=== PATIENT | male | born 1930 | race Caucasian/White ===

== ENCOUNTER → 2016-10-12 | Emergency (ER) | payer MEDICARE, OTHER ==
[~2016-10-12] VITALS: Ht 185.4 cm; Wt 109.0 kg
[~2016-10-12] MED LIST: AC500T PO; ALBU8.5H6 INH; ALBU8CC IH; AMOX-358 PO; ASCO500T6 PO; ASCO500T7 PO; ASP81TEC PO; ASPI-860 PO; BISA10SU6 PR; BISA10SU6 RC; BUDE10.2 IH; BUDE10.2 INH; CALC-676 PO; CALC650T14 PO; CARB1DRO7 OU; CARV3.12T PO; CETI-262 PO; CLOB15OI2 TOP; CLOT15CR5 TOP; CRAN1TAB5 PO; CRAN500C4 PO; CRV6.25T PO; FERR-74 PO; FLUT16SP NSEACH; FURO-125 PO; FURO40TA4 PO; GABA100C PO; GBPN100C PO; GUAI400T58 PO; HYDR-3881 PO; IPR14IN INH; IPR14UD INH; IPRA0.2S50 IH; KCL10CCR PO; LEVO500T80 PO; LEVO750T9 PO; LSNP10T PO; MULT1TAB20 PO; MULT1TAB63 PO; OMEP20CA12 PO; OXYB5TAB9 PO; PETR113O TOP; POLY119P5 PO; POLY17PO2 PO; POLY250017 MC; POT473SP TP; POTA10CA43 PO; POTA20LI2 PO; PSYL1POW PO; PSYL660P17 PO; SERT50TA2 PO; SERT50TA9 PO; SILV20CR14 TOP; SIMV40TA2 PO; SMV10T PO; SMV20T PO; SPRN25T PO; SULF-228 PO; TRIA15CR TP; UREA CREAM TOP; UREA113. TOP; [UNRECOGNIZED DRUG - CODE] PO; [UNRECOGNIZED DRUG - CODE] PO; [UNRECOGNIZED DRUG - CODE] PO; [UNRECOGNIZED DRUG - CODE] TOP; [UNRECOGNIZED DRUG - CODE] TOP; [UNRECOGNIZED DRUG - CODE] TOP; [UNRECOGNIZED DRUG - CODE] TP; [UNRECOGNIZED DRUG - SUPPLY] TP
[2016-10-12 08:39] VITALS: BP 107/72
--- OUTSIDE RECORDS SUMMARY | 2016-10-12 08:39 | XMS REPORT | Continuity of Care Document ---
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 Name Role Phone DENISSE MOSS SQUEEGEE FINISHER PCP [phone] Insurance Providers Payer Name Policy Number Subscriber Name Relationship Medicare A And B [id number] Sherri Jimenez 23 Unknown Other1 [id number] Sherri Jimenez 20 Self / Same As Patient Advance Directives Directive Response Recorded Date/Time Advanced Directives Not applicable 04/06/16 1:32pm Type Durable Power of Supervisor [place] 04/02/16 6:32pm Type Living Will 04/02/16 6:32pm Chief Complaint and Reason for Visit Chief Complaint Laceration Reason for Visit Laceration Problems Active Problems Medical Problem Onset Date Status KIMMY (acute kidney injury) Unknown Acute Acute retention of urine 05/30/2012 Resolved Altered mental status ~11/06/2013 Acute Community acquired pneumonia Unknown Acute Debility Unknown Acute Hypotension Unknown Acute Injury of toe, left, superficial, infected Unknown Acute Laceration Unknown Acute Pneumonia Unknown Acute Weakness Unknown Acute Medications Current Home Medications Medication Dose Units Route Directions Days/Qty Instructions Start Date Albuterol Sulfate 90 Mcg/1 Puff 2 Puff RESPIRATORY (INHALATION) Four Times Daily as needed for Shortness Of Breath 09/28/15 Ascorbic Acid 500 Mg 500 Mg ORAL Three Times A Day 09/28/15 Aspirin 81 Mg 81 Mg ORAL Daily 09/28/15 Bisacodyl 10 Mg 10 Mg RECTAL Daily@1800 09/28/15 Budesonide/Formoterol Fumarate 10.2 Gm 2 Puff RESPIRATORY (INHALATION) Twice A Day 09/28/15 Calcium Carbonate/Vitamin D3 1 Each 2 Tab ORAL Daily 09/28/15 Cetirizine Hcl 10 Mg 5 Mg ORAL Daily 09/28/15 Clobetasol Propionate 15 Gm 1 Applic TOPICAL Twice A Day as needed for Rash 09/28/15 Clotrimazole 15 Gm 1 Applic TOPICAL Twice A Day as needed for Rash 09/28/15 Ferrous Sulfate 325 Mg 325 Mg ORAL Daily 09/28/15 Omeprazole 20 Mg 20 Mg ORAL Daily@0700 09/28/15 Potassium Chloride 10 Meq 10 Meq ORAL Twice A Day With Meals Tolnaftate (Tolnaftate 1% Powder) 45 Gm 1 Applic TOPICAL Twice A Day 09/28/15 Urea 180 Ml 1 Applic TOPICAL Three Times A Day as needed for Calluses 09/28/15 Gabapentin (Neurontin) 100 Mg 200 Mg ORAL Bedtime 09/28/15 Multivits,Ca,Minerals/Iron/Fa (Multivitamin W/Minerals) 1 Each 1 Tab ORAL Daily 09/28/15 Oxybutynin Chloride 5 Mg 5 Mg ORAL Twice A Day 09/28/15 Sertraline Hcl 50 Mg 75 Mg ORAL Daily 09/28/15 Ipratropium [place] 17 Mcg/Puff 2 Puff RESPIRATORY (INHALATION) Twice A Day 04/02/16 Polyethylene Glycol 3350 17 Gm 34 Gm ORAL Daily as needed for Constipation 04/02/16 Psyllium Husk 660 Gm 2 Tsp ORAL Twice A Day 04/02/16 Simvastatin (Zocor) 10 Mg 10 Mg ORAL Bedtime 04/02/16 Fluticasone Propionate 16 Gm 2 Sprays Each Nostril Daily 04/02/16 Ipratropium [place] 17 Mcg/Puff 2 Puff RESPIRATORY (INHALATION) Every 2 Hours as needed for Breathing 04/02/16 Urea 113.4 Gm 1 Applic TOPICAL Daily 04/02/16 Acetaminophen (Tylenol) 500 Mg 500 Mg ORAL Every 6 Hours as needed for Pain 04/02/16 Cranberry/Vit C/L. Sporogenes 1 Each 2 Tab ORAL Daily 04/02/16 Levofloxacin 750 Mg 750 Mg ORAL As Directed 2 Take 1 tab every other day. First tab on 04/07 at 8AM; Second tab on 04/09 @ 8AM. 04/06/16 Past Home Medications Medication Directions Ordered Status Albuterol Sulfate 8 Gm Hfa.aer.ad, 2 Puff Respiratory (Inhalation) Four Times Daily 05/29/12 Discontinued [Akie [place] Protective Top Oint] , Topical Twice A Day 05/29/12 Discontinued Ascorbic Acid 500 Mg Tablet, 500 Mg Oral Three Times A Day 05/29/12 Discontinued Aspirin (Aspirin Ec) 81 Mg Tablet.dr, 81 Mg Oral Daily 05/29/12 Discontinued Bisacodyl 10 Mg Supp.rect, 10 Mg Rectal Daily 05/29/12 Discontinued Budesonide/Formoterol Fumarate 10.2 Gm Hfa.aer.ad, 2 Puff Respiratory ( Inhalation) Twice A Day 05/29/12 Discontinued Calcium Carbonate/Vitamin D3 1 Each Tablet, 2 Tab Oral Daily 05/29/12 Discontinued Calcium Carbonate 650 Mg Tablet, 1 Tab Oral Daily 05/29/12 Discontinued Aloe Vera/Na Lauryl So4 473 Ml [place].pump, 2 [place] Topical Daily 05/29/12 Discontinued Carvedilol (Coreg) 6.25 Mg Tablet, 3.125 Mg Oral Twice A Day 05/29/12 Discontinued Ergocalciferol (Vitamin D2) 50,000 Unit Capsule, 1 Tab Oral Weekly 05/29/12 Discontinued Ferrous Sulfate 325 Mg Tablet, 325 Mg Oral Daily 05/29/12 Discontinued Furosemide 40 Mg Tablet, 40 Mg Oral Twice A Day 05/29/12 Discontinued Gabapentin (Neurontin) 100 Mg Capsule, 100 Mg Oral Daily 05/29/12 Discontinued Ipratropium [place] 12.9 Gm Aers, 2 Puff Respiratory (Inhalation) Every 2 Hours While Awake 05/29/12 Discontinued Multivits W-Fe,Other Min 1 Each Tablet, 1 Tab Oral Daily 05/29/12 Discontinued Omeprazole 20 Mg Capsule.dr, 20 Mg Oral Daily 05/29/12 Discontinued Oxybutynin Chloride 5 Mg Tablet, 5 Mg Oral Twice A Day 05/29/12 Discontinued Polyethylene Glycol 3350 119 Gm Powder, 2 Cap Oral As Needed 05/29/12 Discontinued Potassium Chloride 10 Meq Capcr, 10 Meq Oral Three Times A Day 05/29/12 Discontinued Psyllium 1 Cap Capsule, 1 Tbs Oral Daily 05/29/12 Discontinued Protein Supplement 227 Gm Powder, 1 Tbs Oral Three Times A Day 05/29/12 Discontinued Trimethoprim/Sulfamethoxazole 1 Ea Tablet, 1 Ea Oral Twice A Day 05/29/12 Discontinued Sertraline Hcl 50 Mg Tablet, 75 Mg Oral Daily 05/29/12 Discontinued Silver Sulfadiazine 20 Gm Cream..g., Topical As Needed 05/29/12 Discontinued Simvastatin (Zocor) 40 Mg Tablet, 20 Mg Oral Daily 05/29/12 Discontinued Spironolactone (Aldactone) 25 Mg Tablet, 25 Mg Oral Daily 05/29/12 Discontinued Triamcinolone Acetonide 15 Gm Cream..g., Topical Twice A Day 05/29/12 Discontinued [Urea Cream] , Topical Daily 05/29/12 Discontinued Cranberry Extract 500 Mg Capsule, 500 Mg Oral Daily 11/06/13 Discontinued Hydrocodone Bit/Acetaminophen 1 Ea Tablet, 1 Ea Oral Every 6 Hours as needed for Pain 11/06/13 Discontinued Guaifenesin 400 Mg Tablet, 400 Mg Oral Every 8HRS as needed for Prn 11/06/13 Discontinued Gabapentin 100 Mg Capsule, 200 Mg Oral Bedtime 11/06/13 Discontinued Carvedilol (Coreg) 3.125 Mg Tablet, 0.5 Tab Oral Twice A Day 09/28/15 Discontinued Furosemide 40 Mg Tablet, 40 Mg Oral Bid@0900,1700 09/28/15 Discontinued Ipratropium [place] 0.2 Mg/1 Ml Solution, 2 Puff Respiratory (Inhalation) Twice A Day 09/28/15 Discontinued Levofloxacin 500 Mg Tablet, 500 Mg Oral Daily 09/28/15 Discontinued Lisinopril (Zestril) 10 Mg Tablet, 5 Mg Oral Daily 09/28/15 Discontinued Polyethylene Glycol 3350 2,500 Gm Powder, Unknown Dose Miscell Daily as needed for Constipation 09/28/15 Discontinued Psyllium Husk 1 Gm Powder, 1 Tsp Oral Twice A Day 09/28/15 Discontinued Spironolactone (Aldactone) 25 Mg Tablet, 25 Mg Oral Daily 09/28/15 Discontinued Amoxicillin/Clavulanate Potassium 1 Each Tablet, 1 Each Oral Twice A Day Discontinued Hydrophilic Cream 60 Gm Cream..g., Unknown Dose Topical As Needed as needed for Dry Skin 09/28/15 Discontinued Guaifenesin 400 Mg Tablet, 400 Mg Oral Three Times A Day 09/28/15 Discontinued Simvastatin (Zocor) 20 Mg Tablet, 0.5 Tab Oral Bedtime 09/28/15 Discontinued Pot Sorbate/Vit E/Navi [place]/Urea 473 Ml [place], Unknown Dose Topical Three Times A Day 09/28/15 Discontinued Social History Social History Problem Response Recorded Date/Time Onset Date Status Exposure to occupational hazards No 04/02/2016 6:32pm Query Response Start Date Stop Date Smoking Status Former smoker Hospital Discharge Instructions No hospital discharge instructions. Plan of Care Discharge Date 04/06/16 2:19pm Disposition 01 HOME OR SELF-CARE Condition at Discharge Stable Instructions/Education Provided Laceration (ED) Prescriptions See Medication Section Referrals DENISSE MOSS APRN - Additional Instructions/Education Some of your test results may not be complete prior to your leaving the Emergency Department. The Emergency Department is not authorized to give test results over the phone. Please contact the doctor's office listed in this packet of information for your final results. Follow up with your primary care physician or return to the Emergency Department for worsening or worrisome symptoms. * Emergency Department phone number: [phone], x [phone]* MEDICAL RECORD If you need copies of your X-rays, call [phone]. If you need copies of your medical record, including lab results, a signed authorization for release of records will be required. A telephone call for release of Health Information is not allowed. BILLING Billing can sometimes be confusing and frustrating. To help avoid confusion in the future, please take a moment to acquaint yourself with the billing parties for services. SERVICE BILLING LIBERTARIAN Emergency Room Services [facility] Physician Services [facility] X-rays [place] [facility] Patients will receive bills for services from the appropriate provider. If you have any questions about your [facility] bill, our staff will be happy to assist you. Please call [phone], and ask for the billing department. THANK YOU for choosing [facility] as your emergency care provider! Care Plan and Goals ~~Discharge Care Plan~~ Problem: Laceration repaired Goal: Wound is closed with edges lined up, and will heal without redness, drainage or signs of infection. Instructions: Keep wound clean and dry. Apply antibiotic ointment as directed. Follow physician discharge instructions. Keep wound covered if working in an unclean environment. Wear gloves if working with food in a work environment. Functional Status No functional status results. Allergies, Adverse Reactions, Alerts Allergen Type Severity Reaction Status Last Updated Codeine Allergy Unknown Active 04/02/16 Warfarin Allergy Unknown Active 04/02/16 Clindamycin Allergy Unknown Active 04/02/16 Sulfamethizole Allergy Unknown Active 04/02/16 Cefpodoxime Allergy Unknown Active 04/02/16 Immunizations Name Given Type Status Date Influenza Vaccine Received if Current 04/13/13 Historical Historical Vital Signs Acute Vital Signs Vital Response Date/Time Temperature (Fahrenheit) 98.0 04/06/2016 2:13pm Pulse 72 bpm 04/06/2016 2:13pm Respirations 18 04/06/2016 2:13pm Height 6 ft 1 in Weight 261 lb Body Mass Index 34.0 kg/m^2 Results Laboratory Results Test Name Result Units Flags Reference Collection Date/Time Result Date/ Time Comments White Blood Count 7.43 10^3uL 4.0-11.0 2016 5:20am 2016 6: 54am Red Blood Count 3.67 10^6uL L 4.50-5.50 2016 5:2004/05/2016 6: 54am Hemoglobin 11.4 g/dL L 13.5-17.0 2016 5:2004/05/2016 6:54am Hematocrit 34.20 % L 39.00-50.00 2016 5:20am 2016 6:54am Mean Corpuscular Volume 93 FL 80-100 2016 5:2004/05/2016 6: 54am Mean Corpuscular Hemoglobin 31.1 PG 26.0-34.0 2016 5:202015 6:54am Mean Corpuscular Hemoglobin Concent 33.3 g/dL 31.0-37.0 2016 5: 2016 6:54am Red Cell Distribution Width 14.3 % 11.8-15.6 2016 5:2015 6:54am Platelet Count 235 10^3uL 150-450 2016 5:2016 6:54am Mean Platelet Volume 10.6 FL H 6.0-9.5 2016 5:2016 6: 54am Neutrophils (%) (Auto) 70 % H 51-67 2016 5:2016 6:54am Lymphocytes (%) (Auto) 12 % L 20-46 2016 5:2016 6:54am Monocytes (%) (Auto) 11 % 3-11 2016 5:2016 6:54am Eosinophils (%) (Auto) 5 % H 0-4 2016 5:2016 6:54am Basophils (%) (Auto) 0 % 0-2 2016 5:2016 6:54am Neutrophils # (Auto) 5.2 X10^3 2016 5:2016 6:54am Lymphocytes # (Auto) 0.9 X10^3 2016 5:2016 6:54am Monocytes # (Auto) 0.8 X10^3 2016 5:2016 6:54am Eosinophils # (Auto) 0.4 10^3uL 2016 5:2016 6:54am Basophils # (Auto) 0.0 10^3uL 2016 5:2016 6:54am Prothrombin Time 14.7 SEC H 11.6-14.2 04/02/2016 3:00pm 04/02/2016 3: 36pm Prothromb Time International Ratio 1.2 0.8-1.4 04/02/2016 3:00pm 3:36pm Activated Partial Thromboplast Time 34.4 SEC 24.9-35.9 04/02/2016 3: 00pm 04/02/2016 3:48pm Volume Urine Centrifuged 12 mL 04/02/2016 2:43pm 04/02/2016 3:57pm Urine Collection Type CLEAN CATCH 04/02/2016 2:43pm 04/02/2016 3: 57pm Urine Color Yellow 04/02/2016 2:43pm 04/02/2016 3:47pm Urine Clarity Slightly Cloudy 04/02/2016 2:43pm 04/02/2016 3:47pm Urine pH 5.0 5.0 - 8.0 04/02/2016 2:43pm 04/02/2016 3:47pm Urine Specific [place] 1.015 1.005-1.030 04/02/2016 2:43pm 2015 3:47pm Urine Protein Negative Negative 04/02/2016 2:43pm 04/02/2016 3:47pm Urine Glucose (UA) Negative Negative 04/02/2016 2:43pm 04/02/2016 3: 47pm Urine RBC (Auto) Negative Negative 04/02/2016 2:43pm 04/02/2016 3: 47pm Urine Ketones Negative Negative 04/02/2016 2:43pm 04/02/2016 3:47pm Urine Nitrite Negative Negative 04/02/2016 2:43pm 04/02/2016 3:47pm Urine Bilirubin Negative Negative 04/02/2016 2:43pm 04/02/2016 3: 47pm Urine Urobilinogen 0.2 mg/dL 0.2-1.0 04/02/2016 2:43pm 04/02/2016 3: 47pm Urine Leukocyte Esterase Trace H Negative 04/02/2016 2:43pm 2015 3:47pm Urine RBC 10-20 /HPF H 04/02/2016 2:43pm 04/02/2016 3:57pm Urine WBC 2-5 /HPF 04/02/2016 2:43pm 04/02/2016 3:57pm Urine Bacteria 1+ /HPF 04/02/2016 2:43pm 04/02/2016 3:57pm Urine Squamous Epithelial Cells 5-10 /LPF 04/02/2016 2:43pm 2015 3:57pm Urine Mucus 1+ 04/02/2016 2:43pm 04/02/2016 3:57pm Urine Hyaline Casts 3+ /LPF H 04/02/2016 2:43pm 04/02/2016 3:57pm Urine Random Sodium 45 mmoL/L 20-110 04/04/2016 11:55pm 2016 12: 21am Urine Random Creatinine 57 mg/dL 30-125 04/04/2016 11:55pm 2016 12:21am Sodium Level 141 mmol/L 135-150 2016 5:20am 2016 6:57am Potassium Level 4.7 mmol/L 3.5-5.1 2016 5:20am 2016 6:57am Chloride Level 110 mmol/L H 98-108 2016 5:20am 2016 6:57am Carbon Dioxide Level 19 mmol/L L 22-29 2016 5:20am 2016 6: 57am Anion Gap 15.9 MEQ/L H 3-15 2016 5:20am 2016 6:57am Blood Urea Nitrogen 69 mg/dL H 7-18 2016 5:20am 2016 6:57am Creatinine 2.00 mg/dL H 0.8-1.5 2016 5:20am 2016 6:57am BUN/Creatinine Ratio 37 H 10-20 04/02/2016 3:00pm 04/02/2016 3:36pm Estimat Glomerular Filtration Rate 38.7 2016 5:20am 2015 6:57am Estimated GFR (Non- 32.0 2016 5:20am 2015 6:57am Glucose Level 90 mg/dL 70-110 2016 5:20am 2016 6:57am Calculated Osmolality 287 mosm/L 280-300 04/02/2016 3:00pm 04/02/2016 3 :36pm Calcium Level 8.7 mg/dL L 8.8-10.8 2016 5:20am 2016 6:57am Calcium/Ionized Calcium Ratio 3.9 mg/dL 3.8-4.6 04/02/2016 3:00pm 04/02 3:36pm Phosphorus Level 4.0 mg/dL 2.4-4.9 2016 5:20am 2016 6:57am Magnesium Level 2.1 mg/dL 1.6-2.3 2016 5:20am 2016 6:57am Total Bilirubin 0.8 mg/dL 0.1-1.0 04/02/2016 3:00pm 04/02/2016 3:36pm Alkaline Phosphatase 169 U/L H 38-126 04/02/2016 3:00pm 04/02/2016 3: 36pm Aspartate Amino Transf (AST/SGOT) 22 U/L 15-37 04/02/2016 3:00pm 2015 3:36pm Alanine Aminotransferase (ALT/SGPT) 28 U/L L 30-65 04/02/2016 3:00pm 3:36pm Total Protein 8.3 g/dL 6.4-8.5 04/02/2016 3:00pm 04/02/2016 3:36pm Albumin 2.9 g/dL L 3.4-5.0 2016 5:20am 2016 6:57am Albumin/Globulin Ratio 1.128 1.1-1.8 04/02/2016 3:00pm 04/02/2016 3: 36pm Thyroid Stimulating Hormone (TSH) 1.56 uIU/mL 0.46-4.68 04/03/2016 5: 30am 04/03/2016 7:10am C-Reactive Protein 18.50 mg/dL H 0.0-0.9 04/03/2016 5:30am 04/03/2016 6: 58am Lactic Acid Level 1.0 mmol/L 0.7-2.1 04/02/2016 4:02pm 04/02/2016 4: 23pm Microbiology Results Procedure Source Result Collection Date/Time Result Date/Time Blood Culture Peripheral, :Lab Indicates After [place] No Growth in 72 hours 04/02/2016 3:10pm 04/06/2016 8:08am Blood Culture Peripheral, :Lab Indicates After [place] No Growth in 72 hours 04/02/2016 3:03pm 04/06/2016 8:09am Procedures No known history of procedures. Encounters Encounter Location Arrival/Admit Date Discharge/Depart Date Attending Provider Departed Emergency Room [facility] 04/06/16 1:33pm 04/06/16 2:19pm SUMA HARDING MD Discharged Inpatient [facility] 04/02/16 5:00pm 04/06/16 9:55am SUMA JUAREZ MD Registered Clinic [facility] 04/02/16 2:15pm ARLENE FONTANEZ MD Recent Diagnosis
[2016-10-12 09:16] LABS: BASOPHILS % (AUTO) 1 % (0-2); EOSINOPHILS # (AUTO) 0.3 10^3uL; EOSINOPHILS % (AUTO) 4 % (0-4); LYMPHOCYTES # (AUTO) 0.8 X10^3; MEAN CORPUSCULAR HEMOGLOBIN 29.8 PG (26.0-34.0); MEAN CORPUSCULAR HGB CONC 32.3 g/dL (31.0-37.0); MEAN CORPUSCULAR VOLUME 92 FL (80-100); MEAN PLATELET VOLUME 10.8 FL (6.0-9.5); MONOCYTES # (AUTO) 0.7 X10^3; MONOCYTES % (AUTO) 10 % (3-11); NEUTROPHILS # (AUTO) 5.1 X10^3; NEUTROPHILS % (AUTO) 73 % (51-67); PLATELET COUNT 202 10^3uL (150-450); WHITE BLOOD COUNT 6.92 10^3uL (4.0-11.0)
[2016-10-12 09:30] LABS: ANION GAP 17.3 MEQ/L (3-15); CALCULATED IONIZED CALCIUM 3.8 mg/dL (3.8-4.6); TOTAL PROTEIN 7.9 g/dL (6.4-8.5)
--- NOTE | 2016-10-12 10:08 | Diagnostic Imaging Report ---
INDICATION: Shortness of breath. COMPARISON: 04/02/2016. FINDINGS: Two views of the chest are obtained. Heart size is enlarged but unchanged. There is no central venous congestion. There is no pneumothorax. Large left pleural effusion has shown moderate increase from the prior study. There is some left basilar atelectasis or infiltrate. The right lung appears clear. The osseous structures appear unremarkable. IMPRESSION: Moderate left pleural effusion significantly increased in size from the prior study. There is also some left basilar atelectasis or infiltrate. Stable cardiomegaly without evidence of failure. Dictated by: Dictated on workstation # [id number]
--- NOTE | 2016-10-12 10:58 | NUR ---
Patient report given to BRIAN Gonzales. Care relinquished.
== END ==
LOC: ED 08:37
DX: J90 Pleural effusion, not elsewhere classified (principal); R06.02 Shortness of breath; I10 Essential (primary) hypertension
CPT/HCPCS: 36415; 71020; 80053; 82550; 82553; 83880; 84443; 84484; 85025; 85379; 85610; 86140; 93005; 93010; 99284

== ENCOUNTER 2016-10-25 08:26 | Emergency (ER) | payer MEDICARE, OTHER ==
[~2016-10-25] VITALS: Ht 185.4 cm; Wt 102.7 kg
[2016-10-25 08:44] VITALS: BP 115/91
[2016-10-25] MEDS: ALBUTEROL/IPRATROPIUM 3MG-0.5MG/3ML (DUONEB) NEB VIAL INH ONE (09:18)
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
[2016-10-25] MEDS ORDERED: NEB INH (10:27)
[2016-10-25] MEDS ORDERED: ALB0.5V INH (10:27)
== END 2016-10-25 11:14 | disposition home or self-care (01) ==
LOC: EDUNIT# 08:26 → ED 08:29
DX: K43.9 Ventral hernia without obstruction or gangrene (principal); R09.02 Hypoxemia; Z87.891 Personal history of nicotine dependence
CPT/HCPCS: 71010; 94640; 99283; 99284